=== PATIENT | male | born 1935 | race Caucasian/White ===

== ENCOUNTER 2019-03-15 11:31 | Inpatient (IN) | payer OTHER ==
[~2019-03-15] VITALS: Ht 167.6 cm; Wt 76.4 kg
[~2019-03-15 11:31] MED LIST: ALBU8.5H8 IH; FLUT1AER IH; LISI-613 PO; NIFE90TA38 PO; NITR0.4T50 SL; RANO500T2 PO; SIMV20TA6 PO
[2019-03-15 11:50] LABS: BASOPHILS % (AUTO) 0.5 % (0.0-5.0); EOSINOPHILS % (AUTO) 3.1 % (0.0-8.0); HEMATOCRIT 42.5 % (42-54); LYMPHOCYTES % (AUTO) 19.6 % (21.0-51.0); MEAN CORPUSCULAR HEMOGLOBIN 31.6 pg (27.0-33.0); MEAN CORPUSCULAR HGB CONC 33.4 g/dL (32.0-36.0); MEAN CORPUSCULAR VOLUME 94.4 fL (79-99); MONOCYTES % (AUTO) 12.6 % (3.0-13.0); NEUTROPHILS % (AUTO) 64.2 % (40.0-77.0); NUCLEATED RED BLOOD CELLS 0.1 % (0.0-0.19); PLATELET COUNT (AUTO) 198 K/uL (130-400); RED CELL DISTRIBUTION WIDTH 13.6 % (11.0-15.5)
[2019-03-15 11:59] LABS: CREATININE 1.4 mg/dL (0.5-1.5)
[2019-03-15 12:01] LABS: ALBUMIN 3.7 g/dL (3.5-5.0); BILIRUBIN,TOTAL 0.6 mg/dL (0.2-1.0); TOTAL PROTEIN, SERUM 7.3 g/dL (6.0-8.3)
[2019-03-15 12:10] LABS: INR 0.89 (0.85-1.15); PARTIAL THROMBOPLASTIN TIME 27.3 SEC (26.3-35.5); PROTHROMBIN TIME 9.4 SEC (9.6-11.6)
[2019-03-15] MEDS ORDERED: ASPIRIN 325MG EC TAB 325 MG TABLET.DR PO ONE (14:38)
[2019-03-15] MEDS ORDERED: ENOXAPARIN SODIUM 100 MG/1 ML SQ ONE (14:38)
[2019-03-15] MEDS ORDERED: MAG HYDROX/AL HYDROX/SIMETH ES 30 ML SUSP UDCUP PO PRN (15:15)
[2019-03-15] MEDS ORDERED: LACTULOSE 20 GM/30 ML UDCUP PO PRN (15:15)
[2019-03-15] MEDS ORDERED: DiphenhydrAMINE HCL 50 MG/ML VIAL IV PRN (15:15)
[2019-03-15] MEDS ORDERED: ACETAMINOPHEN 325 MG TAB PO PRN ×2 (15:15)
[2019-03-15] MEDS ORDERED: ONDANSETRON HCL 4 MG/2 ML VIAL IV PRN (15:15)
[2019-03-15] MEDS ORDERED: DIPHENHYDRAMINE HCL 25 MG CAPSULE PO PRN (15:15)
[2019-03-15] MEDS ORDERED: GUAIFENESIN-DM 200/20 MG 10 ML PO PRN (15:15)
[2019-03-15 15:32] LABS: HEMOGLOBIN A1C 5.8 % (4.0-6.0)
[2019-03-15 15:43] LABS: THYROID STIMULATING HORMONE 2.07 uIU/mL (0.36-3.74)
[2019-03-15] MEDS ORDERED: SODIUM CHLORIDE 0.9% 1000ML 1,000 ML IV ONE (17:11)
[2019-03-15] MEDS ORDERED: LISINOPRIL 5 MG TABLET ONE (17:11)
[2019-03-15] MEDS ORDERED: RANOLAZINE 500 MG TAB.SR.12H PO SCH (17:50)
[2019-03-15] MEDS ORDERED: HYDRALAZINE HCL 20 MG/ML VIAL ONE (20:16)
[2019-03-15] MEDS ORDERED: METOPROLOL TARTRATE 25 MG TAB PO SCH (21:00)
[2019-03-15 21:13] VITALS: BP 183/86
[2019-03-15 21:51] VITALS: BP 181/79
[2019-03-15] MEDS: SODIUM CHLORIDE 0.9% 1000ML 1,000 ML IV SCH (22:00)
--- NOTE | 2019-03-15 22:00 | NUR ---
Chest pain/assessment pt reports no chest pain or chest pressure upon arrival to ED and during night stay. Pending possible cardiac cath. I advice to call and page nurse if chest pain arises. Patient understands and verbalize instructions. Pt stable, AOX3 and no distress noted.
[2019-03-15] MEDS: RANOLAZINE 500 MG TAB.SR.12H PO SCH (22:04)
[2019-03-15] MEDS: ATORVASTATIN CALCIUM 20 MG TABLET PO SCH (22:07)
[2019-03-15] MEDS: FAMOTIDINE 20MG TAB 20 MG TAB PO SCH (22:08)
[2019-03-15 22:40] VITALS: BP 176/84
[2019-03-15] MEDS ORDERED: NITROGLYCERIN 1GM/1 INCH PACKET TD ONE (23:13)
[2019-03-15] MEDS: NITROGLYCERIN 1GM/1 INCH PACKET TD SCH (23:15)
[2019-03-15] MEDS: LABETALOL HCL 200 MG TABLET PO SCH (23:15)
[2019-03-15 23:31] VITALS: BP 167/80
[2019-03-15 23:39] VITALS: BP 167/80
[2019-03-16] VITALS (23 sets, daily range): BP systolic 67–160; BP diastolic 40–85
[2019-03-16] MEDS: SODIUM CHLORIDE 0.9% 1000ML 1,000 ML IV SCH ×2 (01:13→10:55)
[2019-03-16 03:54] LABS: MEAN CORPUSCULAR HEMOGLOBIN 31.5 pg (27.0-33.0); MEAN CORPUSCULAR HGB CONC 33.7 g/dL (32.0-36.0); MEAN CORPUSCULAR VOLUME 93.5 fL (79-99); NUCLEATED RED BLOOD CELLS 0.1 % (0.0-0.19); PLATELET COUNT (AUTO) 199 K/uL (130-400); RED BLOOD CELL COUNT(AUTO) 4.27 MIL/uL (4.50-6.20); RED CELL DISTRIBUTION WIDTH 13.9 % (11.0-15.5); WHITE BLOOD COUNT (AUTO) 4.2 K/uL (4.8-10.8)
[2019-03-16 04:01] LABS: ALBUMIN 3.2 g/dL (3.5-5.0); BILIRUBIN,TOTAL 0.4 mg/dL (0.2-1.0); CREATININE 1.3 mg/dL (0.5-1.5); POTASSIUM 4.3 mmol/L (3.5-5.1); TOTAL PROTEIN, SERUM 6.5 g/dL (6.0-8.3)
[2019-03-16 04:26] LABS: EOSINOPHILS % (MANUAL) 4 % (1-6); LYMPHOCYTES % (MANUAL) 14 % (22-44); MONOCYTES % (MANUAL) 8 % (2-9); SEGMENTED NEUTROPHILS % 74 % (40-70)
[2019-03-16 04:27] LABS: MAN.DIFF COMMENT-IMPRESSION MANUAL DIFFERENTIAL
[2019-03-16 04:29] LABS: PLATELET MORPHOLOGY COMMENT ADEQUATE
[2019-03-16] MEDS: NITROGLYCERIN 1GM/1 INCH PACKET TD SCH ×3 (04:41→17:11)
[2019-03-16] MEDS: RANOLAZINE 500 MG TAB.SR.12H PO SCH (08:52)
[2019-03-16] MEDS: LISINOPRIL 5 MG TABLET PO SCH (08:53)
[2019-03-16] MEDS: LABETALOL HCL 200 MG TABLET PO SCH (08:54)
[2019-03-16] MEDS ORDERED: ATOR20TA65 PO (11:55)
[2019-03-16] MEDS ORDERED: FLUT1BLS IH (11:55)
[2019-03-16] MEDS ORDERED: LISI40TA4 PO (11:55)
[2019-03-16] MEDS ORDERED: PHARMACY COMMUNICATION MISC SCH ×2 (12:00→12:45)
[2019-03-16] MEDS ORDERED: IOHEXOL-350 50ML VIAL IV ONE (12:13)
[2019-03-16] MEDS ORDERED: IOHEXOL 350 MG/ML 100ML INFUS..BTL IV ONE ×3 (12:13→14:02)
[2019-03-16] MEDS ORDERED: NITROGLYCERIN 5 MG/ML 10 ML VIAL IV ONE (12:13)
[2019-03-16] MEDS ORDERED: LIDOCAINE HCL 2% 20ML ONE (12:14)
[2019-03-16] MEDS ORDERED: BIVALIRUDIN 250 MG/VIAL IV ONE (12:16)
[2019-03-16] MEDS ORDERED: EPTIFIBATIDE 2 MG/ML 10 ML VIAL IVP ONE (13:25)
[2019-03-16] MEDS ORDERED: EPTIFIBATIDE 75MG/100ML BOTTLE 100 ML IV ONE (13:25)
[2019-03-16] MEDS ORDERED: HEPARIN SODIUM 1000UNIT/ML 10ML VIAL ONE (13:25)
[2019-03-16] MEDS ORDERED: ASPIRIN 325MG EC TAB 325 MG TABLET.DR PO ONE (13:26)
[2019-03-16] MEDS ORDERED: CLOPIDOGREL BISULFATE 300 MG TAB ONE (13:26)
[2019-03-16] MEDS ORDERED: SODIUM CHLORIDE 0.9% 1000ML 1,000 ML IV SCH (14:34)
[2019-03-16] MEDS ORDERED: ONDANSETRON HCL 4 MG/2 ML VIAL IVP SCH (14:45)
[2019-03-16] MEDS ORDERED: EPTIFIBATIDE 75MG/100ML BOTTLE 100 ML IV SCH (14:45)
[2019-03-16] MEDS ORDERED: MORPHINE SULFATE 5 MG/ML VIAL IVP PRN (14:45)
--- NOTE | 2019-03-16 15:00 | NUR ---
RETURNED FROM [facility] VIA BED ACCOMPANIED BY Katlin ALCALA RN. PT. AAOX3, RESP.'S EVEN AND UNLABORED. DENIES ANY CURRENT SOB, DENIES ANY CURRENT PAIN. INSTRUCTED ON STRICT BR PER MD ORDERS, VERBALIZED UNDERSTANDING. RIGHT GROIN SOFT, NO ECCHYMOSIS OR HEMATOMA NOTED. FEET WARM, PP'S (+) BILATERALLY. CALL LIGHT WITHIN REACH, VERBALIZED ABILITY TO USE. BED LOW, SIDE RAILS UP. SPOUSE AT BEDSIDE.
[2019-03-16] MEDS ORDERED: MORPHINE SULFATE 5 MG/ML VIAL IVP SCH (15:15)
--- NOTE | 2019-03-16 17:15 | NUR ---
BR COMPLETED. RIGHT GROIN SOFT, NO ECCHYMOSIS OR HEMATOMA. ALLOWED TO SIT UP IN BED FOR DINNER. CALL LIGHT WITHIN REACH. SPOUSE AT BEDSIDE.
--- NOTE | 2019-03-16 17:55 | NUR ---
SITTING UP IN BED EATING DINNER. CALL LIGHT WITHIN REACH.
--- NOTE | 2019-03-16 19:00 | NUR ---
INFORMED BY Fede NELSON, PCP, PT.'S BLOOD PRESSURE "IS LOW." UPON ENTERING ROOM. PT. RESTING IN BED WITH HOB AT 30 DEGREES. DENIES ANY C/O AT THIS TIME. SBP: 69-74. DECREASED HOB TO APPROX. 20 DEGREES AND PROCEEDED TO APPLY MANUAL PRESSURE TO RIGHT GROIN. RIGHT GROIN DRSG IN PLACE, D/I; AREA SOFT, NO HEMATOMA NOTED BUT PT. C/O TENDERNESS UPON APPLYING PRESSURE.
--- NOTE | 2019-03-16 19:30 | NUR ---
MANUAL PRESSURE APPLIED FOR 30 MIN. AREA SOFT, NO HEMATOMA NOTED. PT. AAOX3. CALL LIGHT WITHIN REACH. SPOUSE AT BEDSIDE.
--- NOTE | 2019-03-16 19:36 | NUR ---
PAGED Harjit VERMA, DISPLAY MAKER PER ANSWERING SERVICE, TO NOTIFY RE:HYPOTENSION. AWAITING RESPONSE.
[2019-03-16] MEDS ORDERED: NOREPINEPHRINE 4MG/NS 250ML 250 ML IV SCH (20:00)
--- NOTE | 2019-03-16 20:02 | NUR ---
PT WAS ADMITTED FROM ROOM 203 VIA BED AFTER DROP IN BLOOD PRESSURE. PT IS AWAKE ALERT AND ORIENTED X3 AND STRONG AND EQUAL TO ALL 4'S. PT HAS VERY DRY MOUTH AND SPEECH APPEARED TO HAVE IMPROVED AFTER PT DRANK WATER.
--- NOTE | 2019-03-16 20:35 | NUR ---
DR. EVRMA CALLED IN TO CHECK ON PT'S PRESENT STATUS AND NOTIFIED OF ULTRASOUND BEING NEGATIVE TO ANY HEMATOMA. ULTRASOUND WAS DONE AT 2019 AND LABS TO BE COLLECTED FOR H & H.
[2019-03-16] MEDS: FAMOTIDINE 20MG TAB 20 MG TAB PO SCH (21:13)
[2019-03-16] MEDS: ATORVASTATIN CALCIUM 20 MG TABLET PO SCH (21:13)
[2019-03-16 21:19] LABS: HEMATOCRIT 30.2 % (42-54)
[2019-03-17] VITALS (15 sets, daily range): BP systolic 112–162; BP diastolic 60–81
[2019-03-17 01:14] LABS: HEMATOCRIT 29.9 % (42-54)
[2019-03-17 03:40] LABS: HEMATOCRIT 29.4 % (42-54); MEAN CORPUSCULAR HEMOGLOBIN 31.9 pg (27.0-33.0); MEAN CORPUSCULAR HGB CONC 33.5 g/dL (32.0-36.0); MEAN CORPUSCULAR VOLUME 95.3 fL (79-99); NUCLEATED RED BLOOD CELLS 0.1 % (0.0-0.19); PLATELET COUNT (AUTO) 172 K/uL (130-400); RED BLOOD CELL COUNT(AUTO) 3.08 MIL/uL (4.50-6.20); RED CELL DISTRIBUTION WIDTH 13.9 % (11.0-15.5); WHITE BLOOD COUNT (AUTO) 6.7 K/uL (4.8-10.8)
[2019-03-17 03:53] LABS: ALBUMIN 2.8 g/dL (3.5-5.0); BILIRUBIN,TOTAL 0.3 mg/dL (0.2-1.0); CREATININE 2.3 mg/dL (0.5-1.5); POTASSIUM 4.7 mmol/L (3.5-5.1); TOTAL PROTEIN, SERUM 6.2 g/dL (6.0-8.3)
[2019-03-17 04:27] LABS: LYMPHOCYTES % (MANUAL) 16 % (22-44); MAN.DIFF COMMENT-IMPRESSION MANUAL DIFFERENTIAL; MONOCYTES % (MANUAL) 5 % (2-9); PLATELET MORPHOLOGY COMMENT ADEQUATE; SEGMENTED NEUTROPHILS % 79 % (40-70)
--- NOTE | 2019-03-17 04:40 | NUR ---
PT HAS BEEN RESTING AND OFFERING N/C. BATH WAS OFFERED AND PT STATED THAT HE WOULD DECLINE FOR THIS HOUR AND WAIT UNTIL MORNING.
[2019-03-17] MEDS: NITROGLYCERIN 1GM/1 INCH PACKET TD SCH ×4 (05:15→20:42)
[2019-03-17] MEDS: LISINOPRIL 5 MG TABLET PO SCH (08:08)
[2019-03-17] MEDS: ASPIRIN 81MG TAB.CHEW PO SCH (08:19)
[2019-03-17] MEDS: CLOPIDOGREL BISULFATE 75 MG TAB PO SCH (08:19)
[2019-03-17] MEDS ORDERED: SODIUM CHLORIDE 0.9% 1000ML 1,000 ML IV ONE (09:41)
[2019-03-17] MEDS: SODIUM CHLORIDE 0.9% 1000ML 1,000 ML IV SCH (09:45)
--- NOTE | 2019-03-17 09:54 | NUR ---
MD ROUNDS DR. RANDLE IN TO SEE PATIENT. MD UPDATED ON STATUS. INFORMED MD OF BUN/CREAT LEVELS AND LOW URINE OUTPUT. INFORMED AM DOSE OF LISINOPRIL HELD D/T TO RENAL FUNCTION. PT IS TO BE TRANSFERRED TO PCCU AND STARTED ON IV FLUIDS, NS @75 ML/HR, BLADDER SCAN POST VOID AND MONITOR STRICT I/O. PATIENT MADE AWARE OF POC. WILL CONT TO MONITOR. AM ASSESSMENT DOCUMENTED.
--- NOTE | 2019-03-17 14:20 | NUR ---
SPOKE WITH DR. RANDLE, INFORMED HIM POST VOID BLADDER SCAN 344 ML. PT VOIDED 100ML, DARK URINE. ORDERED FOR CHAPMAN CATH INSERTION AND REMOVE IN AM.
--- NOTE | 2019-03-17 15:56 | NUR ---
PT TRANSFERRED TO ROOM 232, REPORT GIVEN TO ADEBAYO DANIELS. SPOUSE ACCOMPANIED PATIENT. REMINDED PATIENT TO HYDRATE AND CONTINUE TO URINATE IN THE URINAL TO MEASURE OUTPUT.
[2019-03-17] MEDS: FAMOTIDINE 20MG TAB 20 MG TAB PO SCH (20:41)
[2019-03-17] MEDS: ATORVASTATIN CALCIUM 20 MG TABLET PO SCH (20:41)
[2019-03-18] VITALS (10 sets, daily range): BP systolic 134–195; BP diastolic 60–81
[2019-03-18] MEDS: HYDRALAZINE HCL 20 MG/ML VIAL IV PRN ×2 (00:13→15:34)
[2019-03-18] MEDS: NITROGLYCERIN 1GM/1 INCH PACKET TD SCH ×4 (03:32→21:18)
[2019-03-18] MEDS: SODIUM CHLORIDE 0.9% 1000ML 1,000 ML IV SCH ×2 (04:42→14:15)
[2019-03-18 04:57] LABS: HEMATOCRIT 24.7 % (42-54); MEAN CORPUSCULAR HEMOGLOBIN 31.9 pg (27.0-33.0); MEAN CORPUSCULAR HGB CONC 34.3 g/dL (32.0-36.0); MEAN CORPUSCULAR VOLUME 92.9 fL (79-99); PLATELET COUNT (AUTO) 152 K/uL (130-400); RED BLOOD CELL COUNT(AUTO) 2.66 MIL/uL (4.50-6.20); RED CELL DISTRIBUTION WIDTH 13.8 % (11.0-15.5); WHITE BLOOD COUNT (AUTO) 6.2 K/uL (4.8-10.8)
[2019-03-18 05:11] LABS: EOSINOPHILS % (MANUAL) 3 % (1-6); LYMPHOCYTES % (MANUAL) 6 % (22-44); MAN.DIFF COMMENT-IMPRESSION MANUAL DIFFERENTIAL; MONOCYTES % (MANUAL) 13 % (2-9); SEGMENTED NEUTROPHILS % 78 % (40-70)
[2019-03-18 05:12] LABS: PLATELET MORPHOLOGY COMMENT ADEQUATE
[2019-03-18 05:25] LABS: ALBUMIN 2.8 g/dL (3.5-5.0); BILIRUBIN,TOTAL 0.3 mg/dL (0.2-1.0); CREATININE 2.3 mg/dL (0.5-1.5); POTASSIUM 3.7 mmol/L (3.5-5.1); TOTAL PROTEIN, SERUM 5.7 g/dL (6.0-8.3)
[2019-03-18] MEDS: ASPIRIN 81MG TAB.CHEW PO SCH (08:35)
[2019-03-18] MEDS: LISINOPRIL 5 MG TABLET PO SCH (08:35)
[2019-03-18] MEDS: CLOPIDOGREL BISULFATE 75 MG TAB PO SCH (08:35)
[2019-03-18] MEDS: NITROGLYCERIN 0.4 MG SL TAB SL PRN ×3 (10:24→15:55)
--- NOTE | 2019-03-18 10:25 | NUR ---
C/O CHEST PAIN 11/04. MEDICATED WITH NITRO SUBLINGUAL. WILL REEVALUATE. O2 THERAPY STARTED.
--- NOTE | 2019-03-18 10:30 | NUR ---
CHEST PAIN DOWN TO 2/10. PATIENT DENIES SOB. HE IS COMFORTABLE. WILL CONTINUE TO MONITOR.
--- NOTE | 2019-03-18 10:40 | NUR ---
CHEST PAIN IS RESOLVED.
--- NOTE | 2019-03-18 11:20 | NUR ---
DC PLAN VISITED WITH PATIENT. PATIENT LIVES WITH SPOUSE. INDEPENDENT ABLE TO PERFORM ADL'S. PATIENT HAS NO SERVICES OR DME'S. FEELS SAFE TO RETURN HOME. Addendum: 03/18/19 at 1121 by GEORGE FITZGERALD RN CM Amended: Links added.
--- NOTE | 2019-03-18 14:07 | NUR ---
C/O CHEST PAIN 4/00
--- NOTE | 2019-03-18 14:07 | NUR ---
C/O CHEST PAIN 11/04. MEDICATED WITH NITRO SUBLINGUAL. WILL MONITOR.
[2019-03-18] MEDS ORDERED: RANOLAZINE 500 MG TAB.SR.12H ONE (14:12)
[2019-03-18] MEDS ORDERED: NIFEDIPINE ER 30 MG TAB PO ONE (14:13)
--- NOTE | 2019-03-18 14:13 | NUR ---
CHEST PAIN LEVEL IS RESOLVED. BP: 142/64, HR:77
[2019-03-18] MEDS: NIFEDIPINE ER 30 MG TAB PO SCH (14:16)
[2019-03-18] MEDS: RANOLAZINE 500 MG TAB.SR.12H PO SCH ×2 (14:17→21:13)
--- NOTE | 2019-03-18 15:59 | NUR ---
CHEST PAIN RESOLVED AFTER 1 DOSE OF NITRO SUBLINGUAL. O2 THERAPY AT 2L PER NASAL CANNULA. BP: 134/55 STILL AWAITING VEGETABLE PACKER'S CALLBACK.
--- NOTE | 2019-03-18 16:24 | NUR ---
RELAYED TO HARRY BENZ THAT PATIENT HAD 3 CHEST PAIN EPISODES TODAY WITH RELIEF FROM 1 DOSE OF NITRO SUBLINGUAL. PATIENT AT THIS TIME IS PAIN FREE. NO ORDERS AT THIS TIME.
--- NOTE | 2019-03-18 16:47 | NUR ---
HARRY BENZ CALLED BACK AND ORDERED TO GET A 12 LEAD EKG WHEN PATIENT HAS ANOTHER CHEST PAIN EPISODE.
--- NOTE | 2019-03-18 18:00 | NUR ---
DR. VÁSQUEZ IS MAKING ROUNDS.
[2019-03-18 18:06] LABS: HEMATOCRIT 24.8 % (42-54)
--- NOTE | 2019-03-18 18:08 | NUR ---
REPORTED HH: [phone] VÁSQUEZ. SEE NEW ORDERS.
[2019-03-18] MEDS ORDERED: PHARMACY COMMUNICATION MISC SCH (18:30)
[2019-03-18 18:51] LABS: TROPONIN I 0.15 ng/mL (0.00-0.06)
[2019-03-18] MEDS ORDERED: BISACODYL 10 MG SUPP.RECT RC ONE (19:15)
[2019-03-18] MEDS ORDERED: LABETALOL HCL 5 MG/ML 20ML VIAL IV SCH (19:30)
[2019-03-18] MEDS ORDERED: NITROGLYCERIN 50 MG/D5% WATER 250 BOT IV PRN (19:45)
[2019-03-18] MEDS: ATORVASTATIN CALCIUM 20 MG TABLET PO SCH (21:13)
[2019-03-18] MEDS: FAMOTIDINE 20MG TAB 20 MG TAB PO SCH (21:14)
[2019-03-18] MEDS: DOCUSATE SODIUM 100 MG CAP PO SCH (21:14)
--- NOTE | 2019-03-18 22:29 | NUR ---
STATUS CALLED DR VÁSQUEZ AND NOTIFIED OF CT RESULTS. ORDERS TO STOP IV FLUIDS.
--- NOTE | 2019-03-18 22:40 | NUR ---
MD AMADA MOMIN AT THE BEDSIDE UPDATED ON PATIENT CONDITION AND CT RESULTS. LABS REVIEWED. ORDERS ENTERED INTO SYSTEM.
[2019-03-18 23:05] LABS: BASOPHILS % (AUTO) 1.4 % (0.0-5.0); EOSINOPHILS % (AUTO) 2.4 % (0.0-8.0); HEMATOCRIT 25.5 % (42-54); LYMPHOCYTES % (AUTO) 12.8 % (21.0-51.0); MEAN CORPUSCULAR HEMOGLOBIN 31.9 pg (27.0-33.0); MEAN CORPUSCULAR HGB CONC 33.9 g/dL (32.0-36.0); MEAN CORPUSCULAR VOLUME 94.1 fL (79-99); MONOCYTES % (AUTO) 11.3 % (3.0-13.0); NEUTROPHILS % (AUTO) 72.1 % (40.0-77.0); NUCLEATED RED BLOOD CELLS 0.1 % (0.0-0.19); PLATELET COUNT (AUTO) 156 K/uL (130-400); RED BLOOD CELL COUNT(AUTO) 2.71 MIL/uL (4.50-6.20); RED CELL DISTRIBUTION WIDTH 14.1 % (11.0-15.5); WHITE BLOOD COUNT (AUTO) 5.3 K/uL (4.8-10.8)
[2019-03-18 23:15] LABS: CREATININE 1.8 mg/dL (0.5-1.5)
[2019-03-18 23:27] LABS: % IRON SATURATION 18.6 % (30-44)
[2019-03-19] MEDS: IRON SUCROSE COMPLEX 100 MG in SODIUM CHLORIDE 0.9% 50 ML IV SCH ×2
[2019-03-19 04:21] VITALS: BP 139/70
[2019-03-19] MEDS: NITROGLYCERIN 1GM/1 INCH PACKET TD SCH (04:27)
[2019-03-19 07:48] VITALS: BP 135/64
[2019-03-19] MEDS: DOCUSATE SODIUM 100 MG CAP PO SCH ×2 (08:12→20:04)
[2019-03-19] MEDS: NIFEDIPINE ER 30 MG TAB PO SCH (08:12)
[2019-03-19] MEDS: CLOPIDOGREL BISULFATE 75 MG TAB PO SCH (08:13)
[2019-03-19] MEDS: ASPIRIN 81MG TAB.CHEW PO SCH (08:13)
[2019-03-19] MEDS: RANOLAZINE 500 MG TAB.SR.12H PO SCH ×2 (08:13→20:04)
[2019-03-19] MEDS: LISINOPRIL 5 MG TABLET PO SCH (08:13)
[2019-03-19] MEDS ORDERED: TORSEMIDE 20 MG TAB PO SCH (09:00)
[2019-03-19 09:19] LABS: TROPONIN I 0.11 ng/mL (0.00-0.06)
--- NOTE | 2019-03-19 09:30 | NUR ---
Pt reporting having chest pain. Pt states he quickly got up to go to bathroom and returned to bed with episode of chest pain. Chest pain relieved after 3 min while laying in bed. No SOB.
[2019-03-19] MEDS ORDERED: NITROGLYCERIN 1GM/1 INCH PACKET TD ONE (09:32)
[2019-03-19 11:49] VITALS: BP 136/65
--- NOTE | 2019-03-19 14:31 | NUR ---
patient with episode of midsternal chest pain 10/04. Patient States pain last about 3 minutes and is relieved after rest. Denies SOB. Telmonitors Sinus Rhythm
--- NOTE | 2019-03-19 14:35 | NUR ---
Notified TUYET Preston/Dr. Duron patient with 2 episodes of chest pain today each lasting about 3 min each and relieved with rest. No SOB. Updated on last Troponin of 0.11 down from 0.15. No new orders at this time. Continue to monitor.
[2019-03-19 15:35] VITALS: BP 140/68
[2019-03-19 19:22] VITALS: BP 130/59
--- NOTE | 2019-03-19 20:00 | NUR ---
PM NOTE Awake, alert, and oriented x3. Denies any chest pain or shortness of breath. Bruising noted to right groin area, soft, tender to site. Pulses palpable. Instructed on use of call light for any assistance. Sinus mechanism in 70s on telemetry monitoring. Spouse at bedside.
[2019-03-19] MEDS: FAMOTIDINE 20MG TAB 20 MG TAB PO SCH (20:04)
[2019-03-19] MEDS: ATORVASTATIN CALCIUM 20 MG TABLET PO SCH (20:04)
[2019-03-19] MEDS ORDERED: COMPOUND IV MISC 1 EACH IVSOLN MISC PRN (22:00)
[2019-03-20] VITALS (8 sets, daily range): BP systolic 130–151; BP diastolic 59–76
[2019-03-20 03:39] LABS: HEMATOCRIT 26.7 % (42-54); MEAN CORPUSCULAR HEMOGLOBIN 31.5 pg (27.0-33.0); MEAN CORPUSCULAR HGB CONC 33.6 g/dL (32.0-36.0); MEAN CORPUSCULAR VOLUME 93.8 fL (79-99); NUCLEATED RED BLOOD CELLS 0.1 % (0.0-0.19); PLATELET COUNT (AUTO) 181 K/uL (130-400); RED BLOOD CELL COUNT(AUTO) 2.85 MIL/uL (4.50-6.20); RED CELL DISTRIBUTION WIDTH 13.8 % (11.0-15.5); WHITE BLOOD COUNT (AUTO) 4.4 K/uL (4.8-10.8)
[2019-03-20 03:45] LABS: CREATININE 1.7 mg/dL (0.5-1.5); POTASSIUM 3.6 mmol/L (3.5-5.1)
[2019-03-20 04:32] LABS: EOSINOPHILS % (MANUAL) 5 % (1-6); LYMPHOCYTES % (MANUAL) 19 % (22-44); MAN.DIFF COMMENT-IMPRESSION MANUAL DIFFERENTIAL; MONOCYTES % (MANUAL) 8 % (2-9); SEGMENTED NEUTROPHILS % 68 % (40-70)
[2019-03-20 04:34] LABS: PLATELET MORPHOLOGY COMMENT ADEQUATE
[2019-03-20] MEDS: CLOPIDOGREL BISULFATE 75 MG TAB PO SCH (07:29)
[2019-03-20] MEDS: ASPIRIN 81MG TAB.CHEW PO SCH (07:29)
[2019-03-20] MEDS: LISINOPRIL 5 MG TABLET PO SCH (07:29)
[2019-03-20] MEDS: DOCUSATE SODIUM 100 MG CAP PO SCH ×2 (07:29→20:34)
[2019-03-20] MEDS: NIFEDIPINE ER 30 MG TAB PO SCH (07:29)
[2019-03-20] MEDS: RANOLAZINE 500 MG TAB.SR.12H PO SCH ×2 (07:29→20:35)
[2019-03-20] MEDS: IRON SUCROSE COMPLEX 100 MG in SODIUM CHLORIDE 0.9% 50 ML IV SCH (07:35)
--- NOTE | 2019-03-20 11:12 | NUR ---
REPORTED TO DR. WRAY THAT PATIENT'S SBP HAS BEEN 150'S SINCE 8AM AND THAT THERE IS A STANDING ORDER TO START NGT DRIP TO KEEP SBP <140. MD SAID NO NEED TO START NGT DRIP. WILL CONTINUE TO MONITOR.
[2019-03-20] MEDS ORDERED: CARVEDILOL 3.125 MG TABLET PO SCH (12:30)
[2019-03-20] MEDS: ATORVASTATIN CALCIUM 20 MG TABLET PO SCH (20:34)
[2019-03-20] MEDS: FAMOTIDINE 20MG TAB 20 MG TAB PO SCH (20:35)
[2019-03-20] MEDS: CARVEDILOL 3.125 MG TABLET PO SCH (20:41)
[2019-03-21 03:44] VITALS: BP 139/62
[2019-03-21 03:56] LABS: HEMATOCRIT 26.2 % (42-54); MEAN CORPUSCULAR HEMOGLOBIN 32.5 pg (27.0-33.0); MEAN CORPUSCULAR HGB CONC 34.3 g/dL (32.0-36.0); MEAN CORPUSCULAR VOLUME 94.8 fL (79-99); NUCLEATED RED BLOOD CELLS 0.1 % (0.0-0.19); PLATELET COUNT (AUTO) 194 K/uL (130-400); RED BLOOD CELL COUNT(AUTO) 2.76 MIL/uL (4.50-6.20); WHITE BLOOD COUNT (AUTO) 4.3 K/uL (4.8-10.8)
[2019-03-21 04:02] LABS: CREATININE 1.5 mg/dL (0.5-1.5); POTASSIUM 3.6 mmol/L (3.5-5.1)
[2019-03-21 04:22] LABS: EOSINOPHILS % (MANUAL) 3 % (1-6); LYMPHOCYTES % (MANUAL) 17 % (22-44); MAN.DIFF COMMENT-IMPRESSION MANUAL DIFFERENTIAL; MONOCYTES % (MANUAL) 6 % (2-9); SEGMENTED NEUTROPHILS % 74 % (40-70)
[2019-03-21 04:23] LABS: PLATELET MORPHOLOGY COMMENT ADEQUATE
[2019-03-21 07:15] VITALS: BP 135/64
--- NOTE | 2019-03-21 07:30 | NUR ---
ASSESSMENT ENCOUNTERED PT A&OX3, CALM COOPERATIVE AND DOES NOT APPEAR TO BE IN ANY DISTRESS NOR ANY NEURO DEFICITS PRESENT. PT DENIES PAIN, SOB, NAUSEA. RT GROIN SOFT NONTENDER WITH NO OOZING OR HEMATOMA PRESENT, THERE IS DISCOLORATION TO UPPER THIGH AND SUPRAPUBIC REGION. DP/PT PULSES PALPABLE. PT IS AMBULATORY, GAIT STEADY AND STRONG WITH STAND BY ASSIST. CALL LIGHT WITHIN REACH, FAMILY AT BEDSIDE.
[2019-03-21] MEDS: IRON SUCROSE COMPLEX 100 MG in SODIUM CHLORIDE 0.9% 50 ML IV SCH (09:32)
[2019-03-21] MEDS: ASPIRIN 81MG TAB.CHEW PO SCH (09:34)
[2019-03-21] MEDS: CLOPIDOGREL BISULFATE 75 MG TAB PO SCH (09:34)
[2019-03-21] MEDS: RANOLAZINE 500 MG TAB.SR.12H PO SCH (09:34)
[2019-03-21] MEDS: DOCUSATE SODIUM 100 MG CAP PO SCH (09:34)
[2019-03-21] MEDS: NIFEDIPINE ER 30 MG TAB PO SCH (09:34)
[2019-03-21] MEDS: LISINOPRIL 5 MG TABLET PO SCH (09:34)
[2019-03-21 09:35] VITALS: BP 135/64
[2019-03-21] MEDS: CARVEDILOL 3.125 MG TABLET PO SCH (09:35)
--- NOTE | 2019-03-21 10:30 | NUR ---
DR WRAY AT BEDSIDE UPDATE GIVEN, ORDERS RECEIVED.
[2019-03-21] MEDS ORDERED: CLOP75TA14 PO (11:37)
[2019-03-21] MEDS ORDERED: AEC81 PO (11:37)
[2019-03-21] MEDS ORDERED: CARV3.12 PO (11:51)
--- NOTE | 2019-03-21 12:00 | NUR ---
DISCHARGE INSTRUCTIONS GIVEN, PIV REMOVED AND INTACT, DISCHARGED HOME TO FAMILY VEHICLE VIA WHEELCHAIR.
== END 2019-03-21 12:29 | disposition home or self-care (01) | DRG 246 ==
LOC: EDH 11:31 → OBSVTOIN 15:13 → EDHIP 15:13 → 2AH 20:41 → 2BH 03-16 20:06 → 2AH 03-17 15:53
PROVIDERS: ADMIT Family Medicine; ATTEND Family Medicine
PROC: 027035Z Dilation of Coronary Artery, One Artery with Two Drug-eluting Intraluminal Devices, Percutaneous Approach (ICD-10-PCS; principal; 2019-03-16)
PROC: 4A023N7 Measurement of Cardiac Sampling and Pressure, Left Heart, Percutaneous Approach (ICD-10-PCS; 2019-03-16)
PROC: B2111ZZ Fluoroscopy of Multiple Coronary Arteries using Low Osmolar Contrast (ICD-10-PCS; 2019-03-16)
PROC: B2151ZZ Fluoroscopy of Left Heart using Low Osmolar Contrast (ICD-10-PCS; 2019-03-16)
PROC: B2121ZZ Fluoroscopy of Single Coronary Artery Bypass Graft using Low Osmolar Contrast (ICD-10-PCS; 2019-03-16)
PROC: B2181ZZ Fluoroscopy of Left Internal Mammary Bypass Graft using Low Osmolar Contrast (ICD-10-PCS; 2019-03-16)
PROC: 3E033PZ Introduction of Platelet Inhibitor into Peripheral Vein, Percutaneous Approach (ICD-10-PCS; 2019-03-16)
DX: T82.858A Stenosis of other vascular prosthetic devices, implants and grafts, initial encounter (principal); I50.41 Acute combined systolic (congestive) and diastolic (congestive) heart failure; I25.110 Atherosclerotic heart disease of native coronary artery with unstable angina pectoris; N17.9 Acute kidney failure, unspecified; I11.0 Hypertensive heart disease with heart failure; E78.5 Hyperlipidemia, unspecified; D50.9 Iron deficiency anemia, unspecified; I25.82 Chronic total occlusion of coronary artery; I45.10 Unspecified right bundle-branch block; K57.30 Diverticulosis of large intestine without perforation or abscess without bleeding; S30.1XXA Contusion of abdominal wall, initial encounter; N14.2 Nephropathy induced by unspecified drug, medicament or biological substance; Y83.2 Surgical operation with anastomosis, bypass or graft as the cause of abnormal reaction of the patient, or of later complication, without mention of misadventure at the time of the procedure; Y92.89 Other specified places as the place of occurrence of the external cause; Z79.82 Long term (current) use of aspirin; Z79.899 Other long term (current) drug therapy; Z82.0 Family history of epilepsy and other diseases of the nervous system; Z82.3 Family history of stroke; Z82.49 Family history of ischemic heart disease and other diseases of the circulatory system; Z82.5 Family history of asthma and other chronic lower respiratory diseases; Z83.3 Family history of diabetes mellitus; Z95.5 Presence of coronary angioplasty implant and graft; Z80.9 Family history of malignant neoplasm, unspecified; X58.XXXA Exposure to other specified factors, initial encounter; Y93.89 Activity, other specified; Y99.8 Other external cause status
CPT/HCPCS: 36415; 71045; 74176; 76882; 80048; 80053; 80061; 82550; 83036; 83540; 83550; 83874; 83880; 84443; 84484; 85014; 85018; 85025; 85347; 85610; 85730; 86850; 86900; 86901; 86922; 93005; 93459; 99291; C1760; C1769; C1884; C1887; C1894; C9604; G0378; J0360; J0583; J1327; J1644; J1650; J1756; J3490; J7030; Q9967

== ENCOUNTER → 2021-02-08 | Outpatient (CLI) | payer OTHER ==
[~2021-02-08] MED LIST changes: +AEC81 PO; +ATOR20TA65 PO; +CARV3.12 PO; +CLOP75TA14 PO; -FLUT1AER IH; +FLUT1BLS IH; -LISI-613 PO; +LISI40TA9 PO; -NIFE90TA38 PO; +NIFE90TA65 PO; -RANO500T2 PO; -SIMV20TA6 PO
== END | disposition home or self-care (01) ==
LOC: RAH 08:36
PROVIDERS: ATTEND Internal Medicine Cardiovascular Disease
DX: N28.1 Cyst of kidney, acquired (principal); I70.1 Atherosclerosis of renal artery; I10 Essential (primary) hypertension
CPT/HCPCS: 76770; 93975

== ENCOUNTER 2021-09-17 18:36 | Emergency (ER) | payer OTHER ==
[~2021-09-17] VITALS: Ht 157.5 cm; Wt 77.1 kg
[2021-09-17 20:51] LABS: BASOPHILS % (AUTO) 0.4 % (0.0-5.0); EOSINOPHILS % (AUTO) 2.7 % (0.0-8.0); HEMATOCRIT 37.3 % (42-54); LYMPHOCYTES % (AUTO) 13.5 % (21.0-51.0); MEAN CORPUSCULAR HEMOGLOBIN 30.5 pg (27.0-33.0); MEAN CORPUSCULAR HGB CONC 31.9 g/dL (32.0-36.0); MEAN CORPUSCULAR VOLUME 95.6 fL (79-99); MONOCYTES % (AUTO) 15.6 % (3.0-13.0); NEUTROPHILS % (AUTO) 67.2 % (40.0-77.0); PLATELET COUNT (AUTO) 176 K/uL (130-400); RED CELL DISTRIBUTION WIDTH 13.3 % (11.0-15.5); WHITE BLOOD COUNT (AUTO) 4.8 K/uL (4.8-10.8)
[2021-09-17 21:06] LABS: CREATININE 1.6 mg/dL (0.5-1.5); POTASSIUM 4.1 mmol/L (3.5-5.1)
[2021-09-17 21:16] LABS: ALBUMIN 3.3 g/dL (3.5-5.0); BILIRUBIN,TOTAL 0.4 mg/dL (0.2-1.0)
[2021-09-17 21:31] LABS: B-TYPE NATRIURETIC PEPTIDE 375 pg/mL (0-100)
[2021-09-18 03:36] VITALS: BP 170/77
== END 2021-09-18 06:44 | disposition home or self-care (01) ==
LOC: EDH 18:36
DX: R60.0 Localized edema (principal); I71.4 Abdominal aortic aneurysm, without rupture; Z88.8 Allergy status to other drugs, medicaments and biological substances; Z79.899 Other long term (current) drug therapy
CPT/HCPCS: 36415; 74176; 80053; 83880; 84484; 85025; 93005; 93926; 93971

== ENCOUNTER → 2022-02-06 | Outpatient (CLI) | payer OTHER | END | disposition home or self-care (01) | LOC: SHCH 07:35 | PROVIDERS: ATTEND Internal Medicine Cardiovascular Disease | DX: I10 Essential (primary) hypertension (principal) | CPT/HCPCS: 93975 ==

== ENCOUNTER → 2024-07-05 | Outpatient (CLI) | payer OTHER ==
[~2024-07-05] MED LIST changes: +CLOP-31 PO; -CLOP75TA14 PO
--- NOTE | 2024-07-06 08:46 | HMCSR ---
APPROVED REPORT EXAM: Two-dimensional and M-mode echocardiogram with Doppler and color Doppler. 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 2D Dimensions RVDd4.5 cmLVEF(%)46.9 (>50%)LVED Vol(simp.)133.6 mL IVSd1.0 (0.7-1.1cm)FS(%)24 %LVES Vol(simp.)67.8 mL LVDd5.4 (3.8-5.6cm)Ao Root(2D)3.3 (2.0-3.7cm)LVEF(%, simp.)49 % PWd1.0 (0.7-1.1cm)LVOT diam2.4 (1.8-2.4cm) LVDs4.1 (2.5-4.0cm)IVC diam1.3 cm Aortic Valve AoV Vmax2.3 m/Aaron Peak GR21.5 mmHgLVOT Vmax1.0 m/s AoV VTI0.5 mAo Mean GR11.9 mmHgLVOT VTI0.25 m PEG (VMAX)2.1 cm2AVA (VTI) 2.1 cm2 Mitral Valve MV E Vmax95.2 cm/sDECEL Scww795 ms MV A Jhxn143.1 cm/sP 1/2 T69 ms E/A ratio0.7MVA (PHT)3.2 cm2 TDI E/E' Ojtpks45.2E/E' Gaqibnu16.9 Pulmonary Valve PV Vmax1.1 m/sPV VTI0.24 mPV Mean GR3 mmHg PV Peak GR4.8 mmHgPI End Heavenly. Richar 1.8 cm/s Tricuspid Valve TR Vmax2.9 m/sRAP (EST) 3 kmVmTOXV49.4 mmHg TR Peak GR34.4 mmHg Left Ventricle The left ventricle structure and function is normal. There is normal LV segmental wall motion. There is normal left ventricular wall thickness. LVEF is 55-60%. Grade 1 diastolic dysfunction Right Ventricle The right ventricle is moderately dilated. The right ventricular systolic function is normal. Atria The left atrium appears dilated. Right atrium is not well visualized. Aortic Valve Aortic valve is trileaflet. The aortic valve is calcified and displays decreased opening. Trace aorti c regurgitation. AV Dimensionless Index is 0.47 Lambl's excrescence. Mild aortic stenosis. Calculated aortic valve area is 2.1 cm2 with maximum pressure gradient of 21.5 mmHg and mean pressure gradient of 11.7 mmHg. Mitral Valve The mitral valve is mildly thickened. Mitral annular calcification is mild. Mitral regurgitation is m ild. There is no mitral valve stenosis. Tricuspid Valve The tricuspid valve leaflets appear normal. There is trace to mild tricuspid regurgitation. Right jose tricular systolic pressure is estimated at 30-40 mmHg. Pulmonic Valve The pulmonic valve leaflets are thin and pliable; valve motion is normal. There is mild to moderate v alvular regurgitation. Great Vessels The aortic root is normal in size. The IVC is normal in size and collapses >50% with inspiration. Pericardium No pericardial effusion. Other Information Quality : Technically Limited Technically limited study due to body habitus. Conclusion LVEF is 55-60%. Grade 1 diastolic dysfunction Trace aortic regurgitation. Mild aortic stenosis. Calculated aortic valve area is 2.1 cm2 with maximum pressure gradient of 21.5 mmHg and mean pressure gradient of 11.7 mmHg. Mitral regurgitation is mild. Lambl's excrescence. There is trace to mild tricuspid regurgitation. Right ventricular systolic pressure is estimated at 30-40 mmHg.
== END | disposition home or self-care (01) ==
LOC: SHCH 15:55
PROVIDERS: ATTEND Internal Medicine Cardiovascular Disease
DX: I08.8 Other rheumatic multiple valve diseases (principal); I35.0 Nonrheumatic aortic (valve) stenosis
CPT/HCPCS: 93306